=== PATIENT | female | born 1975 | race Caucasian/White ===

== ENCOUNTER 2021-04-09 10:05 | Emergency (ER) | payer OTHER ==
[~2021-04-09] VITALS: Ht 152.4 cm; Wt 47.2 kg
[2021-04-09] MEDS ORDERED: ZESTRIL2.5 MG PO (10:26)
== END 2021-04-09 15:24 | disposition home or self-care (01) ==
LOC: ER 10:05 → EDBD 10:10 → ER 15:24
DX: R00.2 Palpitations (principal); R51.9 Headache, unspecified; Z03.818 Encounter for observation for suspected exposure to other biological agents ruled out